=== PATIENT | female | born 1970 | race African-American/Black ===

== ENCOUNTER → 2016-06-15 | Emergency (ER) | payer SELFPAY ==
[~2016-06-15] MED LIST: CARAFATE1 G1 ORAL; COMBIVENT RESPIM4 GM IH; DOXYCYCLINE MO100 MG ORAL; IBUPROFEN600 MG ORAL; KEFLEX500 MG ORAL; NORCO 5-325 TA1 EACH ORAL; PRILOSEC OTC20 MG ORAL
--- NOTE | 2016-06-15 23:55 | Emergency Room Report ---
History of Present Illness General Chief Complaint: To Be Triaged Present Illness Allergies: Coded Allergies: TETRACYCLINE (Verified Adverse Reaction, Intermediate, 11/09/15) Nursing Documentation-PMH Hx Hypertension: Yes Hx COPD: Yes Medical Decision Making Diagnostic Impression: Primary Impression: LWBSMD ER Course Patient left before triage. Disposition: LEFT W/OUT BEING SEEN Condition: Unknown Juan Davis M.D. Jun 15, 2016 23:55
== END | disposition left against medical advice (07) ==
LOC: EMR 13:57
DX: R05 Cough (principal); K92.0 Hematemesis; I10 Essential (primary) hypertension; J44.9 Chronic obstructive pulmonary disease, unspecified; Z88.8 Allergy status to other drugs, medicaments and biological substances; Z53.21 Procedure and treatment not carried out due to patient leaving prior to being seen by health care provider

== ENCOUNTER 2016-06-19 11:13 | Emergency (ER) | payer MEDICAID ==
[~2016-06-19] VITALS: Ht 167.6 cm; Wt 65.8 kg
[~2016-06-19 11:13] MED LIST changes: -CARAFATE1 G1 ORAL; -KEFLEX500 MG ORAL; -PRILOSEC OTC20 MG ORAL
[2016-06-19 11:31] VITALS: BP 120/74
[2016-06-19 12:14] LABS: APPEARANCE,URINE CLOUDY; KETONES,URINE 1+ (NEGATIVE); LEUKOCYTE ESTERASE ,URINE 2+ (NEGATIVE); NITRITE,URINE NEGATIVE (NEGATIVE); PH,URINE 5 (4.5-8.0); PROTEIN,URINE NEGATIVE (NEGATIVE); UROBILINOGEN,URINE 1 MG/DL (0.0-1.0)
[2016-06-19 12:17] LABS: BASOPHILS % (AUTO) 2.2 % (0.0-2.0); EOSINOPHILS % (AUTO) 4.7 % (0.0-3.0); LYMPHOCYTES % (AUTO) 26.1 % (20.0-45.0); MEAN CORPUSCULAR HEMOGLOBIN 36.1 PG (27.0-31.0); MEAN CORPUSCULAR VOLUME 106 FL (80-99); MONOCYTES % (AUTO) 10.1 % (1.0-10.0); PLATELET COUNT 228 K/UL (150-450); RED BLOOD COUNT 3.84 M/UL (4.20-5.40); RED CELL DISTRIBUTION WIDTH 11.1 % (11.6-14.8); WHITE BLOOD COUNT 5.1 K/UL (4.8-10.8)
[2016-06-19 12:27] LABS: BACTERIA,URINE FEW /HPF; SQUAMOUS EPITHELIAL CELL,UR MODERATE /LPF (NONE/OCC)
[2016-06-19 12:28] LABS: PROTHROMBIN TIME 10.6 SEC (9.30-11.50)
[2016-06-19 12:32] LABS: ALANINE AMINOTRANSFERASE 19 U/L (3-33); ALBUMIN/GLOBULIN RATIO 1.5 (1.0-2.7); ANION GAP 13 (5-15); ASPARTATE AMINO TRANSFERASE 21 U/L (5-40); CALCIUM 9.1 mg/dL (8.6-10.2); CARBON DIOXIDE 27 mEQ/L (20-30); CHLORIDE 100 mEQ/L (98-107); CREATININE 0.7 mg/dL (0.5-0.9); GLOMERULAR FILTRATION RATE > 60 mL/min (>60); HEMOLYSIS 9; LIPASE 17 U/L (< 60); SODIUM 140 mEQ/L (135-145); TOTAL PROTEIN 6.7 g/dL (6.6-8.7)
[2016-06-19] MEDS ORDERED: Cephalexin 500mg cap ORAL ONE (14:00)
[2016-06-19] MEDS ORDERED: CARAFATE1 G1 ORAL (14:06)
[2016-06-19] MEDS ORDERED: PRILOSEC OTC20 MG ORAL (14:06)
[2016-06-19] MEDS ORDERED: KEFLEX500 MG ORAL (14:06)
[2016-06-19 14:07] VITALS: BP 113/68
[2016-06-19 14:40] VITALS: BP 113/68
--- NOTE | 2016-06-20 16:29 | Cardiology Report ---
APPROVED REPORT EKG Measurement Heart [id number] Normal sinus rhythm Possible Left atrial enlargement Borderline ECG
--- NOTE | 2016-06-20 18:23 | Emergency Room Report ---
History of Present Illness General Chief Complaint: Abdominal Pain Source: Patient Present Illness HPI Patient is a 46-year-old female presented after having increased abdominal pain. Patient reports having had generalized abdominal pain which did not radiate. Patient reported having some epigastric pain. Patient had reported some hematemesis with blood-streaked emesis. This had subsequently resolved. The pain is described as a burning sensation. The patient had no black or bloody stools. Allergies: Coded Allergies: TETRACYCLINE (Verified Adverse Reaction, Intermediate, 11/09/15) Patient History Past Medical History: see triage record Last Menstrual Period: 1 year ago Now: No - darion menopause Reviewed Nursing Documentation: PMH: Agreed, PSxH: Agreed Nursing Documentation-PMH Past Medical History: No Stated History Hx Hypertension: Yes Hx COPD: Yes Review of Systems All Other Systems: negative except mentioned in HPI Physical Exam Vital Signs Date Time Temp Pulse Resp B/P Pulse Ox O2 Delivery O2 Flow Rate FiO2 06/19/16 11:20 98.4 91 16 120/74 95 Room Air Sp02 EP Interpretation: reviewed, normal General Appearance: normal inspection, well appearing, no apparent distress, alert, GCS 15 Head: atraumatic ENT: normal ENT inspection, hearing grossly normal, normal voice Neck: normal inspection, full range of motion, supple, no bony tend Respiratory: normal inspection, lungs clear, normal breath sounds, no respiratory distress, no retraction, no wheezing Cardiovascular #1: regular rate, rhythm, no edema Gastrointestinal: normal inspection, normal bowel sounds, non tender, soft, no guarding, no hernia Genitourinary: no CVA tenderness Musculoskeletal: normal inspection, back normal, normal range of motion Neurologic: normal inspection, alert, responsive, speech normal Psychiatric: normal inspection, judgement/insight normal, mood/affect normal Skin: normal inspection, normal color, no rash Medical Decision Making Diagnostic Impression: Primary Impression: Gastritis Additional Impression: UTI (urinary tract infection) ER Course Patient presented for abdominal pain. Differential diagnoses included ischemic bowel, appendicitis, perforated viscus, abdominal aortic aneurysm, inferior myocardial infarction, viral gastroenteritis Because of complexity of patient's case laboratory testing and imaging studies were ordered. The patient was given IV acid albaro The patient is advised to follow up with primary care doctor in 1-2 days.The patient was noted to have adequate hemoglobin. Patient had the evidence of urinary tract infection. The patient was given prescription for oral antibiotics. The patient is advised followup with gastroenterology for outpatient workup of hematemesis Patient is advised to return if any worsening condition or if any changes in status that are concerning. Labs Test 06/19/16 11:40 06/19/16 11:55 Urine Color Yellow Urine Appearance Cloudy Urine pH 5 (4.5-8.0) Urine Specific Jelm 1.020 (1.005-1.035) Urine Protein Negative (NEGATIVE) Urine Glucose (UA) Negative (NEGATIVE) Urine Ketones 1+ (NEGATIVE) Urine Occult Blood 5+ (NEGATIVE) Urine Nitrite Negative (NEGATIVE) Urine Bilirubin Negative (NEGATIVE) Urine Urobilinogen 1 MG/DL (0.0-1.0) Urine Leukocyte Esterase 2+ (NEGATIVE) Urine RBC 5-10 /HPF (0 - 2) Urine WBC 5-10 /HPF (0 - 2) Urine Squamous Epithelial Cells Moderate /LPF (NONE/OCC) Urine Bacteria Few /HPF (NONE) Urine HCG, Qualitative Negative Urine Opiates Screen Negative (NEGATIVE) Urine Barbiturates Screen Negative (NEGATIVE) Phencyclidine (PCP) Screen Negative (NEGATIVE) Urine Amphetamines Screen Negative (NEGATIVE) Urine Benzodiazepines Screen Negative (NEGATIVE) Urine Cocaine Screen Negative (NEGATIVE) Urine Marijuana (THC) Screen Positive (NEGATIVE) White Blood Count 5.1 K/UL (4.8-10.8) Red Blood Count 3.84 M/UL (4.20-5.40) Hemoglobin 13.9 G/DL (12.0-16.0) Hematocrit 40.8 % (37.0-47.0) Mean Corpuscular Volume 106 FL (80-99) Mean Corpuscular Hemoglobin 36.1 PG (27.0-31.0) Mean Corpuscular Hemoglobin Concent 34.0 G/DL (32.0-36.0) Red Cell Distribution Width 11.1 % (11.6-14.8) Platelet Count 228 K/UL (150-450) Mean Platelet Volume 7.0 FL (6.5-10.1) Neutrophils (%) (Auto) 57.0 % (45.0-75.0) Lymphocytes (%) (Auto) 26.1 % (20.0-45.0) Monocytes (%) (Auto) 10.1 % (1.0-10.0) Eosinophils (%) (Auto) 4.7 % (0.0-3.0) Basophils (%) (Auto) 2.2 % (0.0-2.0) Prothrombin Time 10.6 SEC (9.30-11.50) Prothromb Time International Ratio 1.0 (0.9-1.1) Activated Partial Thromboplast Time 25 SEC (23-33) Sodium Level 140 mEQ/L (135-145) Potassium Level 4.0 mEQ/L (3.4-4.9) Chloride Level 100 mEQ/L (98-107) Carbon Dioxide Level 27 mEQ/L (20-30) Anion Gap 13 (5-15) Blood Urea Nitrogen 6 mg/dL (7-23) Creatinine 0.7 mg/dL (0.5-0.9) Estimat Glomerular Filtration Rate > 60 mL/min (>60) Glucose Level 99 mg/dL (74-106) Calcium Level 9.1 mg/dL (8.6-10.2) Total Bilirubin 0.5 mg/dL (0.0-1.2) Aspartate Amino Transf (AST/SGOT) 21 U/L (5-40) Alanine Aminotransferase (ALT/SGPT) 19 U/L (3-33) Alkaline Phosphatase 23 U/L (35-104) Total Protein 6.7 g/dL (6.6-8.7) Albumin 4.1 g/dL (3.5-5.2) Globulin 2.6 g/dL Albumin/Globulin Ratio 1.5 (1.0-2.7) Lipase 17 U/L (< 60) Last Vital Signs Date Time Temp Pulse Resp B/P Pulse Ox O2 Delivery O2 Flow Rate FiO2 06/19/16 14:40 97.9 60 18 113/68 97 Room Air Status: improved Disposition: HOME, SELF-CARE Condition: Stable Scripts Sucralfate* (CARAFATE*) 1 Gm Tablet 1 GM ORAL FOUR TIMES A DAY for 14 Days, #30 TAB Prov: Rachid Jacobo 06/19/16 Cephalexin* (KEFLEX*) 500 Mg Capsule 500 MG ORAL Q6H, #28 CAP 0 Refills Prov: Rachid Jacobo 06/19/16 Omeprazole Magnesium (PRILOSEC OTC) 20 Mg Tablet.dr 20 MG ORAL DAILY, #30 TAB Prov: Rachid Jacobo 06/19/16 Patient Instructions: Hematemesis, Abdominal Pain, Adult Additional Instructions: Follow up with GI for further evaluation of bleeding Rachid Jacobo Jun 20, 2016 18:23
== END 2016-06-19 14:57 | disposition home or self-care (01) ==
LOC: EMR 12:15
DX: K29.70 Gastritis, unspecified, without bleeding (principal); N39.0 Urinary tract infection, site not specified; Z88.8 Allergy status to other drugs, medicaments and biological substances; I10 Essential (primary) hypertension; J44.9 Chronic obstructive pulmonary disease, unspecified
CPT/HCPCS: 36415; 80053; 80300; 81003; 81025; 83690; 85025; 85610; 85730; 86850; 86900; 86901; 93005; 96374

== ENCOUNTER 2017-02-13 01:59 | Emergency (ER) | payer MEDICAID ==
[~2017-02-13] VITALS: Ht 167.6 cm; Wt 64.4 kg
[~2017-02-13 01:59] MED LIST changes: +CARAFATE1 G1 ORAL; +KEFLEX500 MG ORAL; +PRILOSEC OTC20 MG ORAL
[2017-02-13] MEDS ORDERED: NKM (02:05)
[2017-02-13 03:08] VITALS: BP 127/93
--- NOTE | 2017-02-13 03:08 | Emergency Room Report ---
History of Present Illness General Chief Complaint: Skin Rash/Abscess Source: Patient Present Illness HPI Patient with rash on torso for at least a week. Began under breasts with itching and redness. No fevers. Now spread to back. Minimal on arms. None on face. No prior allergies, but she is concerned about this. No URI sy. She has occasionally used hydrocortisone. Not outside with bites. No fomites seen at home. No diabetes. Allergies: Coded Allergies: TETRACYCLINE (Verified Adverse Reaction, Intermediate, 11/09/15) Patient History Past Medical History: see triage record Social History: Reports: smoking Social History Narrative at home Last Menstrual Period: n/a Now: No Reviewed Nursing Documentation: PMH: Agreed, PSxH: Agreed Nursing Documentation-PMH Past Medical History: No History, Except For Hx Hypertension: No Hx COPD: No Review of Systems All Other Systems: negative except mentioned in HPI Physical Exam Vital Signs Date Time Temp Pulse Resp B/P (MAP) Pulse Ox O2 Delivery O2 Flow Rate FiO2 02/13/17 02:01 98.2 78 16 130/81 98 Room Air Sp02 EP Interpretation: reviewed, normal General Appearance: well appearing, no apparent distress Head: normocephalic, atraumatic ENT: hearing grossly normal, normal voice Neck: full range of motion, supple Respiratory: no respiratory distress, speaking full sentences Musculoskeletal: no calf tenderness Neurologic: alert, normal gait Psychiatric: mood/affect normal Skin: other - erythema under breasts, fine macular rash extending around trunk Medical Decision Making Diagnostic Impression: Primary Impression: Intertrigo Additional Impression: Id reaction ER Course Patient with rash. Ddx; cellulitis, intertrigo, yeast, viral exanthem, allergic reaction. Exam most consistent with intertrigo though allergic reaction can't be excluded. Will treat with antifungals and symptomatically. Not toxic and not febrile. no labs indicated at this time. Benadryl given. Patient stable for outpatient observation and treatment. Last Vital Signs Date Time Temp Pulse Resp B/P (MAP) Pulse Ox O2 Delivery O2 Flow Rate FiO2 02/13/17 03:22 98.2 69 16 127/93 99 Room Air Status: improved Disposition: HOME, SELF-CARE Condition: Improved Scripts Diphenhydramine Hcl* (BENADRYL*) 25 Mg Capsule 25 MG ORAL Q6H Y for Itching, #20 CAP Prov: Juan Davis M.D. 02/13/17 Clotrimazole (Lotrimin AF) 12 Gm Cream..g. 1 APPLIC TP BID, #24 GM 1 Refill Prov: Juan Davis M.D. 02/13/17 Fluconazole (FLUCONAZOLE) 100 Mg Tablet 100 MG ORAL DAILY, #7 TAB 0 Refills Prov: Juan Davis M.D. 02/13/17 Referrals: [facility],REFERR[facility] (PCP) Juan Davis M.D. Feb 13, 2017 03:08
[2017-02-13] MEDS ORDERED: FLUCONAZOLE100 MG ORAL (03:18)
[2017-02-13] MEDS ORDERED: LOTRIMIN AF24 GM TP (03:18)
[2017-02-13] MEDS ORDERED: BENADRYL25 MG ORAL (03:18)
[2017-02-13 03:22] VITALS: BP 127/93
== END 2017-02-13 03:22 | disposition home or self-care (01) ==
LOC: EMR 02:37
DX: L30.4 Erythema intertrigo (principal); F17.200 Nicotine dependence, unspecified, uncomplicated
CPT/HCPCS: 99284

== ENCOUNTER 2017-12-16 08:27 | Emergency (ER) | payer MEDICAID ==
[~2017-12-16] VITALS: Ht 167.6 cm; Wt 61.2 kg
[~2017-12-16 08:27] MED LIST changes: +BENADRYL25 MG ORAL; +FLUCONAZOLE100 MG ORAL; +LOTRIMIN AF24 GM TP; +NKM
[2017-12-16 08:39] VITALS: BP 115/74
[2017-12-16] MEDS ORDERED: Aspirin Baby 81mg ORAL ONE (09:00)
[2017-12-16 09:22] LABS: BASOPHILS % (AUTO) 1.5 % (0.0-2.0); EOSINOPHILS % (AUTO) 11.3 % (0.0-3.0); HEMATOCRIT 39.7 % (37.0-47.0); HEMOGLOBIN 13.5 G/DL (12.0-16.0); LYMPHOCYTES % (AUTO) 18.6 % (20.0-45.0); MEAN CORPUSCULAR VOLUME 103 FL (80-99); MONOCYTES % (AUTO) 5.2 % (1.0-10.0); NEUTROPHILS % (AUTO) 63.4 % (45.0-75.0); PLATELET COUNT 198 K/UL (150-450); RED BLOOD COUNT 3.85 M/UL (4.20-5.40); RED CELL DISTRIBUTION WIDTH 10.6 % (11.6-14.8); WHITE BLOOD COUNT 6.2 K/UL (4.8-10.8)
--- NOTE | 2017-12-16 09:28 | Emergency Room Report ---
History of Present Illness General Chief Complaint: Chest Pain Source: Patient Present Illness HPI Patient 47-year-old female who presented after increased chest discomfort. Patient reports having pain for the past 3 days. The patient was having the pain which was constant in nature. She had associated left arm numbness. She denies any fever. She reports having some neck discomfort. Pain was noted to be constant in her left arm for the past 3 days. Allergies: Coded Allergies: TETRACYCLINE (Verified Adverse Reaction, Intermediate, 12/16/17) Patient History Now: No Reviewed Nursing Documentation: PMH: Agreed; PSxH: Agreed Nursing Documentation-PMH Past Medical History: No History, Except For Hx Hypertension: No Hx COPD: No Review of Systems All Other Systems: negative except mentioned in HPI Physical Exam Vital Signs Date Time Temp Pulse Resp B/P (MAP) Pulse Ox O2 Delivery O2 Flow Rate FiO2 12/16/17 08:30 98.1 79 16 115/74 94 Room Air 98.1 Sp02 EP Interpretation: reviewed, normal General Appearance: normal inspection, well appearing, no apparent distress, alert, GCS 15 Head: atraumatic ENT: normal ENT inspection, hearing grossly normal, normal voice Neck: normal inspection, full range of motion, supple, no bony tend Respiratory: normal inspection, no respiratory distress, no retraction, other - prolonged expirations Cardiovascular #1: regular rate, rhythm, no edema Gastrointestinal: normal inspection, normal bowel sounds, non tender, soft, no guarding, no hernia Genitourinary: no CVA tenderness Musculoskeletal: normal inspection, back normal, normal range of motion Neurologic: normal inspection, alert, responsive, speech normal Psychiatric: normal inspection, judgement/insight normal, mood/affect normal Skin: normal inspection, normal color, no rash Medical Decision Making Diagnostic Impression: Primary Impression: Cervical radiculopathy Additional Impression: Bronchitis ER Course Patient presented for chest pain. Differential diagnosis included but was not limited to acute coronary syndrome, pulmonary embolism, pneumonia, aortic dissection, shingles, pneumothorax, aortic dissection, esophageal rupture, pericarditis. Because of complexity of patient's case laboratory testing and imaging studies were ordered. Given the patient's constant pain for several days. The with a negative troponin the patient is essentially ruled out for myocardial infarction. The patient was given breathing treatment with improvement in her symptoms. She was the advised follow-up with her primary care physician for reexamination and treatment.The patient was additionally given a prescription for clotrimazole for what appears to be a skin yeast infection.The patient is advised to follow up with primary care doctor in 1-2 days. Patient is advised to return if any worsening condition or if any changes in status that are concerning. This report is dictated with [employer] software which may occasionally lead to discrepancies related to use of this software. Labs Test 12/16/17 08:44 12/16/17 09:15 White Blood Count 6.2 K/UL (4.8-10.8) Red Blood Count 3.85 M/UL (4.20-5.40) Hemoglobin 13.5 G/DL (12.0-16.0) Hematocrit 39.7 % (37.0-47.0) Mean Corpuscular Volume 103 FL (80-99) Mean Corpuscular Hemoglobin 34.9 PG (27.0-31.0) Mean Corpuscular Hemoglobin Concent 34.0 G/DL (32.0-36.0) Red Cell Distribution Width 10.6 % (11.6-14.8) Platelet Count 198 K/UL (150-450) Mean Platelet Volume 6.9 FL (6.5-10.1) Neutrophils (%) (Auto) 63.4 % (45.0-75.0) Lymphocytes (%) (Auto) 18.6 % (20.0-45.0) Monocytes (%) (Auto) 5.2 % (1.0-10.0) Eosinophils (%) (Auto) 11.3 % (0.0-3.0) Basophils (%) (Auto) 1.5 % (0.0-2.0) D-Dimer < 0.19 mg/L FEU Sodium Level 137 MMOL/L (136-145) Potassium Level 4.2 MMOL/L (3.5-5.1) Chloride Level 106 MMOL/L (98-107) Carbon Dioxide Level 26 MMOL/L (21-32) Anion Gap 5 mmol/L (5-15) Blood Urea Nitrogen 9 mg/dL (7-18) Creatinine 0.8 MG/DL (0.55-1.30) Estimat Glomerular Filtration Rate > 60 mL/min (>60) Glucose Level 100 MG/DL (74-106) Calcium Level 8.5 MG/DL (8.5-10.1) Total Bilirubin 0.3 MG/DL (0.2-1.0) Aspartate Amino Transf (AST/SGOT) 13 U/L (15-37) Alanine Aminotransferase (ALT/SGPT) 17 U/L (12-78) Alkaline Phosphatase 34 U/L (46-116) Total Creatine Kinase 81 U/L (26-308) Creatine Kinase MB < 0.5 NG/ML (0.0-3.6) Creatine Kinase MB Relative Index 0.6 Troponin I 0.005 ng/mL (0.000-0.056) Pro-B-Type Natriuretic Peptide 119 pg/mL (0-125) Total Protein 6.5 G/DL (6.4-8.2) Albumin 3.4 G/DL (3.4-5.0) Globulin 3.1 g/dL Albumin/Globulin Ratio 1.1 (1.0-2.7) Lipase 80 U/L (73-393) Urine HCG, Qualitative Negative (NEGATIVE) Urine Opiates Screen Negative (NEGATIVE) Urine Barbiturates Screen Negative (NEGATIVE) Phencyclidine (PCP) Screen Negative (NEGATIVE) Urine Amphetamines Screen Negative (NEGATIVE) Urine Benzodiazepines Screen Negative (NEGATIVE) Urine Cocaine Screen Negative (NEGATIVE) Urine Marijuana (THC) Screen Positive (NEGATIVE) Chest X-Ray Diagnostic Results Chest X-Ray Diagnostic Results : Chest X-Ray Ordered: Yes # of Views/Limited/Complete: 1 View Indication: Chest Pain EP Interpretation: Yes Interpretation: no consolidation Impression: No acute disease Electronically Signed by: Electronically signed by Dr. Rachid Jacobo M.D. Last Vital Signs Date Time Temp Pulse Resp B/P (MAP) Pulse Ox O2 Delivery O2 Flow Rate FiO2 12/16/17 08:39 98.8 70 16 115/74 94 Room Air 98.8 Status: improved Disposition: HOME, SELF-CARE Condition: Stable Scripts Clotrimazole* (LOTRIMIN*) 15 Gm Cream..g. 1 APPLIC TOPIC TWICE A DAY, #15 GM Prov: Rachid Jacobo MD 12/16/17 Albuterol Sulfate* (ALBUTEROL SULFATE MDI*) 8.5 Gm Hfa.aer.ad 2 PUFF INH Q4H PRN for cough/wheezing, #1 EA 0 Refills Prov: Rachid Jacobo MD 12/16/17 Prednisone* (PREDNISONE*) 20 Mg Tablet 40 MG ORAL DAILY, #10 TAB Prov: Rachid Jacobo MD 12/16/17 Referrals: [facility]ERR[facility] (PCP) Rachid Jacobo MD Dec 16, 2017 09:27
[2017-12-16 09:32] LABS: ANION GAP 5 mmol/L (5-15); BLOOD UREA NITROGEN 9 mg/dL (7-18); CALCIUM 8.5 MG/DL (8.5-10.1); CARBON DIOXIDE 26 MMOL/L (21-32); CHLORIDE 106 MMOL/L (98-107); CREATININE 0.8 MG/DL (0.55-1.30); POTASSIUM 4.2 MMOL/L (3.5-5.1); SODIUM 137 MMOL/L (136-145)
[2017-12-16 09:45] LABS: ALANINE AMINOTRANSFERASE 17 U/L (12-78); ALBUMIN 3.4 G/DL (3.4-5.0); ALBUMIN/GLOBULIN RATIO 1.1 (1.0-2.7); ALKALINE PHOSPHATASE 34 U/L (46-116); ASPARTATE AMINO TRANSFERASE 13 U/L (15-37); BILIRUBIN,TOTAL 0.3 MG/DL (0.2-1.0); CKMB < 0.5 NG/ML (0.0-3.6); CREATINE KINASE 81 U/L (26-308)
[2017-12-16] MEDS ORDERED: Albuterol/Ipratropium 3ml neb HHN ONE (10:00)
[2017-12-16] MEDS ORDERED: ALBUTEROL SULF8.5 GM INH (10:41)
[2017-12-16] MEDS ORDERED: PREDNISONE20 MG ORAL (10:41)
[2017-12-16] MEDS ORDERED: CLOTRIMAZOLE15 GM TOPIC (10:47)
[2017-12-16 10:58] VITALS: BP 125/80
--- NOTE | 2017-12-16 12:10 | Diagnostic Imaging Report ---
Indication: Chest pain Technique: XRAY Chest 1v Comparison: None Findings: Heart size and mediastinal contours are within normal limits for AP technique. There is no focal consolidation, pneumothorax or pleural effusion. Osseous structures demonstrate no acute abnormality. Impression: No radiographic evidence of acute cardiopulmonary disease.
--- NOTE | 2017-12-16 19:53 | Cardiology Report ---
APPROVED REPORT EKG Measurement Heart [id number] Normal sinus rhythm Possible Left atrial enlargement Borderline ECG
== END 2017-12-16 10:58 | disposition home or self-care (01) ==
LOC: EMR 08:53
DX: J40 Bronchitis, not specified as acute or chronic (principal); M54.12 Radiculopathy, cervical region
CPT/HCPCS: 36415; 71045; 80053; 80307; 81025; 82550; 82553; 83690; 83880; 84484; 85025; 85379; 93005; 94640; 94664; 99284; J7620